=== PATIENT | male | born 1955 | race Caucasian/White ===

== ENCOUNTER 2021-10-14 09:01 | Outpatient (REF) | payer MEDICARE, SELFPAY ==
--- NOTE | ~2021-10-14 | XR_ITS ---
EXAMINATION: XR CHEST CLINICAL INFORMATION: Exposure to asbestos. COMPARISON: None TECHNIQUE: 2 views of the chest were obtained. FINDINGS: The lungs are well expanded. No focal consolidation. No pleural effusion. Cardiac silhouette is within normal limits. XR/XR chest 2V IMPRESSION: No acute abnormality.
== END 2021-10-14 09:02 | disposition home or self-care (01) ==
LOC: HO.XRAY 09:01
PROVIDERS: PCP Internal Medicine; Visit Provider Internal Medicine
DX: Z77.090 Contact with and (suspected) exposure to asbestos (principal)
CPT/HCPCS: 71046